=== PATIENT | female | born 1980 | race Caucasian/White ===

== ENCOUNTER 2017-09-22 07:54 | Day surgery (SDC) | payer BC ==
--- NOTE | 2017-09-16 17:10 | HP ---
PREOPERATIVE HISTORY AND PHYSICAL: DATE OF SURGERY/ADMISSION: 09/22/17 DATE OF OFFICE VISIT/ENCOUNTER: 09/09/17 ATTENDING SURGEON: Abby Brewer MD * (DICTATED BY SASHA BURKETT) PROCEDURE: Right wrist carpal tunnel release. CHIEF COMPLAINT: Numbness and tingling, right hand. HISTORY OF PRESENT ILLNESS: This is a 37-year-old female who complaints of bilateral numbness and tingling in her hands for several years. She had a recent nerve conduction study, which showed severe right carpal tunnel syndrome and moderate left carpal tunnel syndrome. Her symptoms are worse on the right than on the left. She thinks that she occasionally does have numbness in her little finger, but mostly involves the median nerve innervated fingers. She has not had any treatment for the problem. It is progressively worsening and affecting her ability to do things. She is interested in permanent resolution. She denies injury. She denies neck pain. She has consented to proceed with a right wrist carpal tunnel release and then will likely follow shortly after that with a left wrist carpal tunnel release. PAST MEDICAL HISTORY: 1. Polycystic ovarian syndrome. 2. Hypothyroidism. 3. GERD secondary to hiatal hernia. 4. Hypercholesterolemia. 5. Hypertension. 6. Mild asthma. PAST SURGICAL HISTORY: 1. Partial thyroidectomy. 2. Tube in right ear. 3. Tonsillectomy. 4. Back surgery, L3 through L5 fusion. CURRENT MEDICATIONS: 1. Ibuprofen p.r.n. 2. Irbesartan 75 mg daily. 3. Levocetirizine dihydrochloride 5 mg daily. 4. Levothyroxine sodium 25 mcg daily. 5. Lovastatin 20 mg daily. 6. Metformin HCl ER 500 mg daily. 7. Montelukast sodium 10 mg. 8. Omeprazole 20 mg daily. 9. Sprintec 28. ALLERGIES: FENTANYL causes nausea and QUALAQUIN causes flushing with warmth. FAMILY MEDICAL HISTORY: Heart disease, COPD, asthma, hypercholesterolemia, hypertension, and diabetes. SOCIAL HISTORY: The patient is employed at [employer]. 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 She denies tobacco use, illicit drug use, and does not drink alcohol. REVIEW OF SYSTEMS: General: Negative for fevers, chills, or night sweats. The patient reports nausea with fentanyl used in the past for anesthesia. HEENT : Negative for headache, lightheadedness, or syncopal episodes. Integumentary: Negative for abrasions, lesions, or open wounds. Cardiothoracic: Positive for hypertension. Negative for chest pain, palpitations, or edema. Pulmonary: Positive for shortness of breath with exertion usually related to the weather. Negative for chronic cough and COPD. GI: Negative for nausea, vomiting, diarrhea. Positive for GERD. : Negative for nocturia, urinary frequency, urgency, history of UTIs, or kidney problems. Musculoskeletal: Positive for current complaint. Positive for occasional low back pain. Neurological: Negative for history of seizures, stroke, or epilepsy. Endocrine: Positive for hypothyroidism. Negative for diabetes. Hematologic: Negative for easy bruising, anemia, excessive bleeding, or history of DVT. Infectious Disease: Negative for history of MRSA, hepatitis C, or HIV. PHYSICAL EXAMINATION GENERAL: Well-developed, well-nourished 37-year-old female in no acute distress. VITAL SIGNS: Height 5 feet 6 inches, weight 280 pounds, pulse rate 86, blood pressure 132/82. HEENT: Normocephalic, atraumatic. Pupils are equal, round, and reactive to light and accommodation. Extraocular movements are intact. Throat is clear. NECK: Supple. No palpable lymph nodes. PULMONARY: Lungs are clear to auscultation bilaterally. No wheezes, rales, or rhonchi. CARDIOVASCULAR: Regular rate and rhythm. S1 and S2. No murmurs, rubs, or gallops. No edema. ABDOMEN: Positive bowel sounds, soft, nontender. NEUROLOGIC: Alert and oriented x3. Cranial nerves II through XII are intact. Sensation is intact to light touch. MUSCULOSKELETAL: On exam of her bilateral hands, there is no visible thenar wasting. She has good range of motion of her fingers. She can make a full fist bilaterally. She has some slight weakness with thumb abduction bilaterally. Negative Tinel's sign at the wrist. Positive Phalen's test. IMAGING STUDIES: EMG nerve conduction study shows severe right carpal tunnel syndrome and moderate left carpal tunnel syndrome. IMPRESSION: Bilateral carpal tunnel syndrome. PLAN: The patient is scheduled to undergo a right wrist carpal tunnel release with Dr. Brewer on 09/22/17. She will return to the office 10 days postop for followup and suture removal. A prescription for Ultracet was e-scribed to the patient's pharmacy for postoperative pain management. SASHA BURKETT [id number]/[facility] #: [id number] PADMA
[~2017-09-22 07:54] MED LIST: Buffered Lidocaine 0.9% SYRIN* 5 ML/SYR SYRINGE INTRADERM ONE; Lidocaine 1% INJ* 10 MG/ML 30 ML SDV ONE
[2017-09-22] MEDS ORDERED: Lidocaine 2% PF * 5 ML VIAL ONE (09:20)
[2017-09-22] MEDS ORDERED: Propofol* 10 MG/ML 20 ML BTL IV PUSH ONE (09:20)
[2017-09-22] MEDS ORDERED: Naloxone* 0.4 MG/ML 1 ML VIAL IV PRN (09:41)
[2017-09-22 10:09] VITALS: BP 131/74
[2017-09-22] MEDS ORDERED: Phenylephrine 2.5% OPTH.SOL* 2 ML BTL ONE (12:36)
[2017-09-22] MEDS ORDERED: Cyclopentolate 1% OPTH.SOL* 2 ML BTL ONE (12:36)
[2017-09-22] MEDS ORDERED: Neomycin/Polymy/Dex OPHTH.OIN* 3.5 GM ONE (12:36)
[2017-09-22] MEDS ORDERED: Lidocaine 1% MPF* 2 ML VIAL ONE (12:36)
[2017-09-22] MEDS ORDERED: Tropicamide 1% OPTH.SOL* BTL ONE (12:36)
[2017-09-22] MEDS ORDERED: Tetracaine 0.5% OPTH.SOL 4 ML* 1 DROP BTL ONE (12:36)
[2017-09-22] MEDS ORDERED: Ketorolac 0.5% OPHTH (NF) 0.5 % 5 ML BTL ONE (12:36)
--- NOTE | 2017-09-23 05:35 | OP ---
DATE OF OPERATION: 09/22/17 [facility] DATE OF : 84 SURGEON: Abby Brewer MD. [employer]: SASHA Worrell. ANESTHESIA: Local MAC. PRE-OP DIAGNOSIS: Right carpal tunnel syndrome. POST-OP DIAGNOSIS: Right carpal tunnel syndrome. OPERATIVE PROCEDURE: Right carpal tunnel release. INDICATION FOR PROCEDURE: Krystle is a 37-year-old female with numbness and tingling in the median nerve distribution of her right hand. She presents for right carpal tunnel release. ESTIMATED BLOOD LOSS: Zero. TOURNIQUET TIME: 5 minutes. DESCRIPTION OF PROCEDURE: The patient was brought to the operating room, was given a sedation anesthetic and a local infiltration of 10 cc of 1% plain lidocaine in the palm of her right hand. The skin of her right hand and forearm was prepped and draped in the usual sterile fashion. The hand and forearm were exsanguinated and the tourniquet elevated to 250 mmHg. A longitudinal incision was made in the palm in line with the ring finger. We dissected sharply through the subcutaneous tissue down to the transverse carpal ligament. The ligament was divided sharply with a knife and then more proximally with the scissors. The nerve was dissected free from the surrounding tissue and there was an area of moderate compression at the mid portion of the ligament. The wound was irrigated and the skin edges were reapproximated with 4-0 nylon suture. The wound was dressed with Xeroform, 4x4 , Webril, and an Hernán wrap. The patient tolerated the procedure well, was brought to the recovery room in good condition. [id number]/[facility] #: [id number] MTDD
== END 2017-09-22 10:10 | disposition home or self-care (01) ==
LOC: OREAST 07:54
PROVIDERS: ATTEND Orthopaedic Surgery
DX: G56.01 Carpal tunnel syndrome, right upper limb (principal); E11.9 Type 2 diabetes mellitus without complications; Z79.84 Long term (current) use of oral hypoglycemic drugs; E03.9 Hypothyroidism, unspecified; E78.00 Pure hypercholesterolemia, unspecified; I10 Essential (primary) hypertension; J45.909 Unspecified asthma, uncomplicated; K44.9 Diaphragmatic hernia without obstruction or gangrene; K21.9 Gastro-esophageal reflux disease without esophagitis; E28.2 Polycystic ovarian syndrome
CPT/HCPCS: 81025; A9270-GY; J2704

== ENCOUNTER 2017-10-16 06:50 | Day surgery (SDC) | payer BC ==
--- NOTE | 2017-10-14 01:07 | HP ---
PREOPERATIVE HISTORY AND PHYSICAL: DATE OF SURGERY/ADMISSION: 10/16/17 - [facility] DATE OF OFFICE VISIT/ENCOUNTER: 10/01/17 ATTENDING SURGEON: Abby Brewer MD * (DICTATED BY SASHA BURKETT) PROCEDURE: Left wrist carpal tunnel release. CHIEF COMPLAINT: Numbness and tingling, left hand. HISTORY OF PRESENT ILLNESS: This is a 37-year-old female who complains of numbness and tingling in her left hand for several years. She had a nerve conduction study, which showed moderate left carpal tunnel syndrome. She reports that the symptoms in her left hand primarily involve the median nerve distribution. It is progressively worsening and affecting her ability to do things. She is interested in a permanent resolution. She recently underwent a right wrist carpal tunnel release and has done well with that and now she is interested in pursuing a left wrist carpal tunnel release. PAST MEDICAL HISTORY: 1. Polycystic ovarian syndrome. 2. Hypothyroidism. 3. GERD secondary to hiatal hernia. 4. Hypercholesterolemia. 5. Hypertension. 6. Mild asthma. PAST SURGICAL HISTORY: 1. Right carpal tunnel release. 2. Partial thyroidectomy. 3. Tube in right ear. 4. Tonsillectomy. 5. Back surgery, L3 through L5 fusion. CURRENT MEDICATIONS: 1. Ibuprofen p.r.n. 2. Irbesartan 75 mg daily. 3. Levocetirizine dihydrochloride 5 mg daily. 4. Levothyroxine sodium 25 mcg daily. 5. Lovastatin 20 mg daily. 6. Metformin HCl ER 500 mg daily. 7. Montelukast sodium 10 mg daily. 8. Omeprazole 20 mg daily. 9. Zyrtec. 10. Sprintec 28. ALLERGIES: FENTANYL causes nausea, QUALAQUIN causes flushing and warmth. FAMILY MEDICAL HISTORY: Heart disease, COPD, asthma, hypercholesterolemia, hypertension, and diabetes. 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 She denies tobacco use, illicit drug use, and does not drink alcohol. REVIEW OF SYSTEMS: General: Negative for fevers, chills, or night sweats. The patient reports nausea with fentanyl use in the past for anesthesia. HEENT : Negative for headache, lightheadedness, or syncopal episodes. Integumentary: Negative for abrasions, lesions, or open wounds. Cardiothoracic: Positive for hypertension. Negative for chest pain, palpitations, or edema. Pulmonary: Positive for shortness of breath with exertion, usually related to the weather. Negative for chronic cough and COPD. GI: Negative for nausea, vomiting, and diarrhea. Positive for GERD. : Negative for nocturia, urinary frequency, urgency, history of UTIs, or kidney problems. Musculoskeletal: Positive for current complaint. Positive for occasional low back pain. Neurological: Negative for history of seizure, stroke, or epilepsy. Endocrine: Positive hypothyroidism. Negative for diabetes. Hematologic: Negative for easy bruising , anemia, excessive bleeding, or history of DVT. Infectious Disease: Negative for history of MRSA, hepatitis C, or HIV. PHYSICAL EXAMINATION GENERAL: Well-developed, well-nourished 37-year-old female, in no acute distress. VITAL SIGNS: Height 5 feet 6 inches, weight 280 pounds. Pulse rate 86, blood pressure 132/82. HEENT: Normocephalic, atraumatic. Pupils are equal, round, and reactive to light and accommodation. Extraocular movements are intact. Throat is clear. NECK: Supple. No palpable lymph nodes. PULMONARY: Lungs are clear to auscultation bilaterally. No wheezes, rales, or rhonchi. CARDIOVASCULAR: Regular rate and rhythm. S1, S2. No murmurs, rubs, or gallops. No edema. ABDOMEN: Positive bowel sounds, soft, nontender. NEUROLOGIC: Alert and oriented x3. Cranial nerves II through XII are intact. Sensation is intact to light touch. MUSCULOSKELETAL: On exam of the left hand, there is no visible thenar wasting. She has good range of motion of her fingers, but she does have some weakness with thumb abduction. Negative Tinel's at the wrist. Positive Phalen's test. IMAGING STUDIES: EMG nerve conduction study shows moderate left carpal tunnel syndrome. IMPRESSION: Left carpal tunnel syndrome. PLAN: The patient is scheduled to undergo a left wrist carpal tunnel release with Dr. Brewer on 10/16/17. She will return to the office 10 days postop for followup and suture removal. A prescription for Ultracet was e-scribed to the patient's pharmacy for postoperative pain management. SASHA BURKETT [id number]/[facility] #: [id number] PADMA
[~2017-10-16 06:50] MED LIST changes: -Lidocaine 1% INJ* 10 MG/ML 30 ML SDV ONE
[2017-10-16] MEDS ORDERED: Lidocaine 1% INJ* 10 MG/ML 30 ML SDV ONE (07:07)
[2017-10-16] MEDS ORDERED: Midazolam* 1 MG/ML 2 ML VIAL (2 MG) ONE (07:39)
[2017-10-16] MEDS ORDERED: methylPREDNISolone ACETATE 80* 80 MG/ML 1 ML VIAL ONE (07:57)
[2017-10-16 08:30] VITALS: BP 150/95
[2017-10-16] MEDS ORDERED: Ibuprofen TAB* 600 MG ONE (08:38)
[2017-10-16] MEDS ORDERED: Naloxone* 0.4 MG/ML 1 ML VIAL IV PRN (09:10)
--- NOTE | 2017-10-16 15:10 | OP ---
DATE OF OPERATION: 10/16/17 [facility] DATE OF : 84 SURGEON: Abby Brewer MD TORCH OPERATOR: SASHA Worrell ANESTHESIA: Local MAC. PRE-OP DIAGNOSES: Left carpal tunnel syndrome and left lateral epicondylitis. POST-OP DIAGNOSES: Left carpal tunnel syndrome and left lateral epicondylitis. OPERATIVE PROCEDURE: Left elbow injection and left carpal tunnel release. ESTIMATED BLOOD LOSS: Zero. TOURNIQUET TIME: About 5 minutes. INDICATIONS FOR PROCEDURE: Krystle is a 37-year-old woman with pain in her left elbow and numbness and tingling in the median nerve distribution of her left hand. She presents for left elbow injection and left carpal tunnel release. DESCRIPTION OF PROCEDURE: The patient was brought to the operating room, was given a sedation anesthetic and a local injection of 10 cc of 1% plain lidocaine in the palm of her left hand. She was then given injection of 80 mg of Depo-Medrol and 2 cc of 1% plain lidocaine at the left lateral epicondyle. Skin of her left hand and forearm was prepped and draped in the usual sterile fashion. The hand and forearm were exsanguinated and the tourniquet elevated to 250 mmHg. A longitudinal incision was made in the palm in line with the ring finger. We dissected sharply through the subcutaneous tissue down to the transverse carpal ligament. The ligament was divided sharply with the knife and then more proximally with the scissors. The nerve was dissected free from the surrounding tissue and there was an area of moderate compression at the mid portion of the ligament. The wound was irrigated and the skin edges were reapproximated with 4-0 nylon suture. The wound was dressed with Xeroform, 4x4, Webril, and an Hernán wrap. The patient tolerated the procedure well and was brought to the recovery room in good condition. [id number]/[facility] #: [id number] MTDD
== END 2017-10-16 08:52 | disposition home or self-care (01) ==
LOC: OREAST 06:50
PROVIDERS: ATTEND Orthopaedic Surgery
DX: G56.02 Carpal tunnel syndrome, left upper limb (principal); M77.12 Lateral epicondylitis, left elbow; E03.9 Hypothyroidism, unspecified; K21.9 Gastro-esophageal reflux disease without esophagitis; K44.9 Diaphragmatic hernia without obstruction or gangrene; E78.00 Pure hypercholesterolemia, unspecified; I10 Essential (primary) hypertension; J45.909 Unspecified asthma, uncomplicated
CPT/HCPCS: 81025; A9270-GY; J1040; J2250

== ENCOUNTER 2018-01-21 11:53 | Emergency (ER) | payer BC ==
[2018-01-21 12:38] VITALS: BP 155/99
--- NOTE | 2018-01-21 12:38 | UC ---
Throat Pain/Nasal Aris HPI - HPI Summary HPI Summary: 38 yo female presents with left maxillary and temporal pain for the last 3-4 days. She tells me that she had a root canal on an upper left tooth 1 week ago. Was placed on Keflex to cover for infection. Isn't sure if she has an infection now or if this is from her tooth. Denies fever, chills, sore throat, sinus congestion/drainage, cough, SOB, chest pain, dizziness, vision changes. - History of Current Complaint Chief Complaint: UCGeneralIllness Stated Complaint: HEADACHE, SINUS CONGESTION Time Seen by Provider: 01/21/18 12:37 Hx Obtained From: Patient Hx Last Menstrual Period: 12/24/17 Onset/Duration: Sudden Onset Severity: Severe Pain Intensity: 10 Pain Scale Used: 0-10 Numeric - Allergies/Home Medications Allergies/Adverse Reactions: Allergies Allergy/AdvReac Type Severity Reaction Status Date / Time fentanyl AdvReac Mild Nausea Verified 01/21/18 12:38 quinine [From Qualaquin] AdvReac Mild FLUSHING Verified 01/21/18 12:38 WITH REDNESS PMH/Surg Hx/FS Hx/Imm Hx Endocrine History: Diabetes, Hypothyroidism, Dyslipidemia GI/ History: Gastroesophageal Reflux - Surgical History Surgical History: Yes Surgery Procedure, Year, and Place: TONSILECTOMY. PARTIAL THYROIDECTOMY. L3-5 FUSION AND DECOMPRESSION. TUBE PLACED IN RIGHT EAR 04/2017. RIGHT WRIST CARPAL TUNNEL RELEASE-2018 - Family History Known Family History: Positive: Diabetes - Social History Lives: With Family Alcohol Use: None Substance Use Type: None Smoking Status (MU): Never Smoked Tobacco Review of Systems Constitutional: Negative Skin: Negative Eyes: Negative ENT: Dental Pain Respiratory: Negative Cardiovascular: Negative Gastrointestinal: Negative Neurovascular: Negative Musculoskeletal: Negative Neurological: Headache Psychological: Negative All Other Systems Reviewed And Are Negative: Yes Physical Exam - Summary Physical Exam Summary: GENERAL: NAD. WDWN. No pain distress. SKIN: No rashes, sores, lesions, or open wounds. HEENT: Head: AT/NC Eyes: EOM intact. Conjunctiva clear without inflammation or discharge. Ears: Hearing grossly normal. TMs intact, no bulging, erythema, or edema. Nose: Nasal mucosa pink and moist. TTP LEFT maxillary overlying the area of her recent root canal. NTTP frontal sinus. Throat: Posterior oropharynx without exudates, erythema, or tonsillar enlargement. Uvula midline. NECK: Supple. Nontender. No lymphadenopathy. CHEST: CTAB. No r/r/w. No accessory muscle use. Breathing comfortably and in no distress. CV: RRR. Without m/r/g. Pulses intact. Brisk cap refill. NEURO: Alert. CN II-XII grossly intact. PSYCH: Age appropriate behavior. Triage Information Reviewed: Yes Vital Signs: Initial Vital Signs Temp 99.1 F 01/21/18 12:33 Pulse 67 01/21/18 12:33 Resp 18 01/21/18 12:33 BP 155/99 01/21/18 12:33 Pulse Ox 100 01/21/18 12:33 Dental: Negative: Dental Fracture @, Abscess @, Cellulitis @, Cervical Lymphadenopathy, Bleeding Throat Pain/Nasal Course/Dx - Course Course Of Treatment: I suspect her pain is due to her recent dental work. Rx for lidocaine viscous and have her f/u prn. - Differential Dx/Diagnosis Provider Diagnoses: Dental pain Discharge - Sign-Out/Discharge Documenting (check all that apply): Discharge/Admit/Transfer - Discharge Plan Condition: Stable Disposition: HOME Prescriptions: Lidocaine 2% VISCOUS* [Xylocaine 2% Viscous*] 15 ml SWISH SPIT Q6H PRN #100 ml PRN Reason: Pain Patient Education Materials: Toothache (ED) Referrals: Chapis Anderson PA [Primary Care Provider] - Additional Instructions: If you develop a fever, shortness of breath, chest pain, new or worsening symptoms - please call your PCP or go to the ED. Your blood pressure was high at todays visit. Please see your primary provider within 4 weeks for recheck and re-evaluation. - Billing Disposition and Condition Condition: STABLE Disposition: Home
== END 2018-01-21 12:53 | disposition home or self-care (01) ==
LOC: UCCORT 11:53
DX: K08.89 Other specified disorders of teeth and supporting structures (principal); Z88.5 Allergy status to narcotic agent; Z88.8 Allergy status to other drugs, medicaments and biological substances; E11.9 Type 2 diabetes mellitus without complications
CPT/HCPCS: 99212; G0463

== ENCOUNTER 2018-12-06 09:06 | Emergency (ER) | payer BC, OTHER ==
[2018-12-06 09:23] VITALS: BP 132/90
[2018-12-06] MEDS ORDERED: Ibuprofen TAB* 600 MG PO ONE (10:00)
--- NOTE | 2018-12-06 10:01 | UC ---
Knee Pain HPI - HPI Summary HPI Summary: Patient presents to urgent care reporting right knee pain. Patient states proximally 8:30 this morning was stepping out of a dog cage at work. Patient states she slipped and landed on her right knee. Patient did not hit her head. Patient states today. PATIENT WITH PERSISTENT PAIN RIGHT ANTERIOR INFERIOR KNEE SINCE THIS TIME. PATIENT WITHOUT ANY ANKLE PAIN OR HIP PAIN. PATIENT DENIES BACK PAIN. DID NOT STRIKE HER HEAD. PATIENT NOT TAKE ANY ANALGESIA. PATIENT APPLY ICE. PATIENT DOES HAVE AN EVOLVING BRUISE ON HER RIGHT KNEE. PATIENT IS NOT ON ANTICOAGULATION. PATIENT'S MEDICATIONS REVIEWED THIS VISIT. PATIENT STATES SHE IS NOT . - History of Current Complaint Chief Complaint: UCLowerExtremity Stated Complaint: RT KNEE INJURY Time Seen by Provider: 12/06/18 09:31 Hx Obtained From: Patient Hx Last Menstrual Period: 11/28/18 Onset/Duration: Sudden Onset Severity Initially: Moderate Severity Currently: Moderate Pain Intensity: 7 Pain Scale Used: 0-10 Numeric - Allergies/Home Medications Allergies/Adverse Reactions: Allergies Allergy/AdvReac Type Severity Reaction Status Date / Time fentanyl AdvReac Mild Nausea Verified 12/06/18 09:23 quinine [From Qualaquin] AdvReac Mild FLUSHING Verified 12/06/18 09:23 WITH REDNESS Home Medications: Home Medications Meclizine TAB* [Antivert 12.5 TAB*] 25 mg PO TID PRN 12/06/18 [History Confirmed 12/06/18] PMH/Surg Hx/FS Hx/Imm Hx Previously Healthy: Yes - Surgical History Surgical History: Yes Surgery Procedure, Year, and Place: TONSILECTOMY. PARTIAL THYROIDECTOMY. L3-5 FUSION AND DECOMPRESSION. TUBE PLACED IN RIGHT EAR 04/2017. RIGHT WRIST CARPAL TUNNEL RELEASE-2018 - Family History Known Family History: Positive: Diabetes - Social History Occupation: Employed Full-time Lives: With Family Alcohol Use: None Substance Use Type: None Smoking Status (MU): Never Smoked Tobacco Review of Systems All Other Systems Reviewed And Are Negative: Yes Constitutional: Positive: Negative Skin: Positive: Bruising Motor: Positive: Other - knee pain Musculoskeletal: Positive: Other: - knee pain Neurological: Positive: Negative Physical Exam - Summary Physical Exam Summary: Vital Signs Reviewed: Yes A+Ox3, mild discomfort Eyes: Conjunctiva Clear ENT: Hearing grossly normal neck: supple Respiratory: Positive: No respiratory distress, No accessory muscle use Cardiovascular: skin color reflect adequate perfusion Musculoskeletal Exam: + SLE + flex/ext knee with pain inferior aspect + flex.ext ankle neg anterior/post drawer neg laxity lateral joint stress + TTP inferior aspect patella no crepitus mild edema Neurological: Positive: Alert, ambulatory without difficulty Psychological: Positive: Normal Response To Family Skin: Positive: no rash, quarter size area of edema inferior aspect of patella, no open wounds Triage Information Reviewed: Yes Vital Signs: Initial Vital Signs Temp 99.6 F 12/06/18 09:18 Pulse 72 12/06/18 09:18 Resp 20 12/06/18 09:18 BP 132/90 12/06/18 09:18 Pulse Ox 100 12/06/18 09:18 Diagnostics - Radiology No standard instances Radiology Interpretation Completed By: Radiologist Knee Pain Course/Dx - Course Course Of Treatment: Patient presents to urgent care with right knee pain status post mechanical fall at work today. Patient has strict her head. Patient with tenderness and ecchymosis inferior aspect is patella. No crepitus. Patient good range of motion distal CSM intact. Patient will be given Motrin Tylenol. We'll check imaging. If no fracture we'll place in Hernán and crutches. Recommend follow with Dr. Romero orthopedics. 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 Patient given a work. Motrin and Tylenol. Return precautions. Patient comfortable in agreement with plan. - Differential Dx/Diagnosis Provider Diagnosis: Knee pain, acute Discharge - Sign-Out/Discharge Documenting (check all that apply): Patient Departure All imaging exams completed and their final reports reviewed: Yes - Discharge Plan Condition: Stable Disposition: HOME Patient Education Materials: Knee Sprain (ED), Knee Pain (ED) Forms: *Work Release Referrals: Joan Mandujano MD [Medical Doctor] - Yann Romero MD [Medical Doctor] - Chapis Anderson PA [Primary Care Provider] - Additional Instructions: -Okay to alternate ibuprofen (advil, Motrin)600mg and tylenol 1000mg every 3 hours for pain. Take with food. Do NOT take for more than 4-5 days - Use crutches until you can walk without pain or a limp - wear hernán wrap for support -Apply ice (20 min at a time) every 4 hours while awake today and tomorrow - Keep leg elevated - this will help with swelling and pain -contact your doctor tomorrow to arrange a follow-up appointment this week. Call your doctor or return with questions or concerns - Billing Disposition and Condition Condition: STABLE Disposition: Home
== END 2018-12-06 11:07 | disposition home or self-care (01) ==
LOC: UCEAST 09:06
DX: M25.561 Pain in right knee (principal); S80.01XA Contusion of right knee, initial encounter; W01.0XXA Fall on same level from slipping, tripping and stumbling without subsequent striking against object, initial encounter; Y92.89 Other specified places as the place of occurrence of the external cause; Y99.0 Civilian activity done for income or pay; Z88.5 Allergy status to narcotic agent; Z88.8 Allergy status to other drugs, medicaments and biological substances
CPT/HCPCS: 99213; A9270-GY; G0463